=== PATIENT | male | born 1985 | race Caucasian/White ===

== ENCOUNTER 2022-02-05 18:44 | Emergency (ER) | payer OTHER, MEDICAID, SELFPAY ==
--- NOTE | 2022-02-05 18:53 | XRR_ITS ---
PROCEDURE INFORMATION: Exam: XR Chest Exam date and time: 02/05/2022 8:14 PM Age: 21 years old Clinical indication: Chest wall pain; Additional info: Cp TECHNIQUE: Imaging protocol: Radiologic exam of the chest. Views: 1 view. COMPARISON: No relevant prior studies available. FINDINGS: Lungs: Unremarkable. No consolidation. Pleural spaces: Unremarkable. No pleural effusion. No pneumothorax. Heart/Mediastinum: Unremarkable. No cardiomegaly. Bones/joints: Unremarkable. XR/XR chest 1V portable [id number] IMPRESSION: No acute findings.
[2022-02-05 18:55] VITALS: BP 138/76; PULSE 84; RESP 16; TEMP 37.1; O2SAT 97; BMI 27.7
--- NOTE | 2022-02-05 19:02 | ECG_ITS ---
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 Measurements Intervals [place] Rate: 79 P: 57 MT: 143 QRS: 81 QRSD: 102 T: 55 QT: 351 QTc: 402 Interpretive Statements SINUS RHYTHM No previous ECG available for comparison Electronically Signed On 02-06-2022 14:28:10 CDT by William Sands M.D. [id number]
--- NOTE | 2022-02-05 21:11 | W.ED.CHESTPA ---
Documented by User: Marhsa Montana, RETENTION REPRESENTATIVE-C 02/05/22 22:43 HPI - Chest Pain General: Chief Complaint: Chest Pain Stated Complaint: Chest Pains Time Seen by Provider: 02/05/22 19:52 History of Present Illness: Patient is a 36-year-old male that is in today for chest pain. He reports that since yesterday he has been having intermittent squeezing central chest pain. He reports that it is right in the center of his chest that feels like a tightness squeezing pain. He reports it does not radiate. He reports that it lasted approximately 2 seconds and it goes away. He reports that nothing seems to make that better or worse. He denies any associated symptoms including fever, chills, shortness of breath, diaphoresis. He denies any cardiac history. He reports that he is a healthy man. He does report that he takes Prilosec [id number]-[id number] for acid reflux. He reports that he is bothered by acid reflux pretty bad. Associated symptoms: Deny abdominal pain, dyspnea, fever(s), nausea, palpitations, syncope or vomiting Review of Systems Const: Denies: fever(s), chills or body aches Card: Reports: chest pain (Intermittent x2 days lasting 1 to 2 seconds per episode); Denies: palpitations, irregular heart rhythm, swelling of feet/ankles, lightheadedness, syncope, pre-syncope, dyspnea on exertion or orthopnea Resp: Denies: dyspnea, productive cough or non-productive cough GI: Reports: heartburn; Denies: abdominal pain, nausea or vomiting Physical Exam Const: COMMON NORMALS: no acute distress, patient oriented x3 and alert HENMT: COMMON NORMALS: Normal external nose present, Normal nasal mucous membranes and turbinates present, moist oral mucous membranes and oropharynx normal NOSE: Normal external nose present and Normal nasal mucous membranes and turbinates present Chest: COMMONS NORMALS: normal inspection of the chest and normal palpation of entire chest wall Resp: COMMON NORMALS: normal respiratory effort, No use of accessory muscles and clear to auscultation bilaterally AUSCULTATION: clear to auscultation bilaterally Cardio: COMMON NORMALS: regular rate, regular rhythm, S1 normal heart sound present, S2 normal heart sound present and No murmurs present (Cardio) RATE: regular rate RHYTHM: regular rhythm HEART SOUNDS: S1 normal heart sound present and S2 normal heart sound present GI: COMMON NORMALS: Normal to inspection, nondistended, normoactive bowel sounds present and Soft to palpation PALPATION: Yes Soft to palpation and Yes Tenderness to palpation present (GI) (Mild epigastric tenderness) Neuro: COMMON NORMALS: patient oriented x3 SENSORIUM/ORIENTATION: Yes alert Course Vital Signs: Vital signs: Vital Signs Temperature 98.8 F 02/05/22 18:55 Pulse Rate 84 02/05/22 18:55 Respiratory Rate 16 02/05/22 18:55 Blood Pressure 138/76 02/05/22 18:55 Pulse Oximetry 97 02/05/22 18:55 Oxygen Delivery Me thod 02/05/22 18:55 MDM - Chest Pain Medical Decision Making 36-year-old male in for complaints of intermittent fleeting chest tightness in the center of his chest. He does report to having ongoing acid reflux issues. He takes Prilosec [id number]. His EKG is unremarkable today his chest x-ray is unremarkable today his vital signs are stable. He is in no acute distress. He did have one episode while I was talking to him. It lasted less than 2 seconds. He rated it at a 4 on a 0-to-10 scale with no associated symptoms. He reports it as a spasming type pain. A GI cocktail was administered and patient's symptoms completely resolved. Patient did not have any other intermittent pain after having the GI cocktail. We will stop patient's Prilosec and switch him to Protonix daily. Recommend he follow-up with primary care provider within the next week for continued monitoring and evaluation. We discussed dietary modifications. Return to the ER for any new or worsening symptoms, new, worsening, different chest pain, shortness of breath, fever. Patient verbalized understanding and does wish to be discharged home at this time. Lab Data Radiology Impressions Chest X-Ray 02/05/22 18:53 IMPRESSION: No acute findings. Discharge Plan Discharge Patient Disposition: Home Clinical Impression: Atypical chest pain Condition: Stable Prescriptions: New Protonix 40 mg tablet,delayed release (DR/EC) 40 mg PO DAILY Qty: 30 0RF Discharge Orders: Discharge ED (Routine); Ordered 02/05/22 Ordered By: Marsha Montana Discharge Diet: As Directed Discharge Activity: Resume usual activity Patient Instructions: Chest Pain (ED), GERD (Gastroesophageal Reflux Disease) (ED), Opioid Safety Activity Restrictions/Additional Instructions: Start taking Protonix tomorrow. Stop your [id number]-rhk-tplgdhy Prilosec. Reduce acidic foods, nicotine, chocolate, alcohol in your diet. Follow-up with your primary care provider in the next week. Return to the emergency department for any new or worsening symptoms. Chest pain that is worsening, different, or radiating, shortness of breath, severe abdominal pain. Coding Level of Care Code ED Wave Guide Assembler for Chg Fwd Exam Detailed Documented by User: Otto Lowe DO 02/07/22 05:56 HPI - Chest Pain General: Chief Complaint: Chest Pain Stated Complaint: Chest Pains Time Seen by Provider: 02/05/22 19:52 Course Vital Signs: Vital signs: Vital Signs Temperature 98.8 F 02/05/22 18:55 Pulse Rate 84 02/05/22 18:55 Respiratory Rate 16 02/05/22 18:55 Blood Pressure 138/76 02/05/22 18:55 Pulse Oximetry 97 02/05/22 18:55 Oxygen Delivery Me thod 02/05/22 18:55 MDM - Chest Pain Medical Decision Making 36-year-old male in for complaints of intermittent fleeting chest tightness in the center of his chest. He does report to having ongoing acid reflux issues. He takes Prilosec [id number]. His EKG is unremarkable today his chest x-ray is unremarkable today his vital signs are stable. He is in no acute distress. He did have one episode while I was talking to him. It lasted less than 2 seconds. He rated it at a 4 on a 0-to-10 scale with no associated symptoms. He reports it as a spasming type pain. A GI cocktail was administered and patient's symptoms completely resolved. Patient did not have any other intermittent pain after having the GI cocktail. We will stop patient's Prilosec and switch him to Protonix daily. Recommend he follow-up with primary care provider within the next week for continued monitoring and evaluation. We discussed dietary modifications. Return to the ER for any new or worsening symptoms, new, worsening, different chest pain, shortness of breath, fever. Patient verbalized understanding and does wish to be discharged home at this time. Chart reviewed and patient discussed with midlevel. Agree with assessment and plan. Medical Records I reviewed the patient's medical records. Lab Data I reviewed the patient's lab results. Radiology Impressions Chest X-Ray 02/05/22 18:53 IMPRESSION: No acute findings. Discharge Plan Discharge Patient Disposition: Home Clinical Impression: Atypical chest pain Condition: Stable Prescriptions: New Protonix 40 mg tablet,delayed release (DR/EC) 40 mg PO DAILY Qty: 30 0RF Discharge Orders: Discharge ED (Routine); Ordered 02/05/22 Ordered By: Marsha Montana Discharge Diet: As Directed Discharge Activity: Resume usual activity Patient Instructions: Chest Pain (ED), GERD (Gastroesophageal Reflux Disease) (ED), Opioid Safety Activity Restrictions/Additional Instructions: Start taking Protonix tomorrow. Stop your jesf-yye-awezzln Prilosec. Reduce acidic foods, nicotine, chocolate, alcohol in your diet. Follow-up with your primary care provider in the next week. Return to the emergency department for any new or worsening symptoms. Chest pain that is worsening, different, or radiating, shortness of breath, severe abdominal pain. Coding Level of Care Code ED Wave Guide Assembler for Theresa Fwangely Exam Detailed
[2022-02-05] MEDS: lidocaine 2% viscous 15 ML, aluminum-mag hydrox-simethicon 30 ML, sucralfate oral liq 1 GM PO (21:25)
== END 2022-02-05 21:54 | disposition home or self-care (01) ==
PROVIDERS: Emergency Provider Nurse Practitioner Family
DX: R07.89 Other chest pain (principal); K21.9 Gastro-esophageal reflux disease without esophagitis
CPT/HCPCS: 71045; 93005; 99284